=== PATIENT | female | born 1980 | race Caucasian/White ===

== ENCOUNTER → 2017-12-05 | Outpatient (CLI) | payer OTHER ==
[~2017-12-05] MED LIST: FLOMAX0.4 MG PO; GLUCOPHAGE500 MG PO; HYDROCODON-ACE1 EAC7 PO; INTRINSI B12-F1 EACH PO; LEVORA-281 EACH PO; LEXAPRO10 MG PO; LIPITOR20 MG PO; LOPRESSOR50 MG PO; MOTRIN600 MG PO; MULTIPLE VITAM1 EACH PO; PERCOCET 5/31 TABLET PO; PRILOSEC OTC20 MG PO; PROAIR HFA8.5 GM IH; SINGULAIR10 MG PO; XOPENEX HF200 INHALA IH; ZESTORETIC 20-1 EAC2 PO; ZOFRAN ODT4 MG PO
== END | disposition home or self-care (01) ==
LOC: AMB 13:46
PROC: 0HB6XZZ Excision of Back Skin, External Approach (ICD-10-PCS; principal; 2017-12-05)
DX: L72.3 Sebaceous cyst (principal); J45.909 Unspecified asthma, uncomplicated